=== PATIENT | female | born 1990 | race African-American/Black ===

== ENCOUNTER 2016-11-09 11:19 | Emergency (ER) | payer OTHER ==
[~2016-11-09] VITALS: Ht 167.6 cm; Wt 90.0 kg
[~2016-11-09 11:19] MED LIST: LEVO500T15 PO; LURA20TA; METO10TA3 PO; PROT40 PO
[2016-11-09 12:07] LABS: BASOPHILS % 0.9 % (0.0-2.0); HEMATOCRIT. 39.9 % (36.0-48.0); HEMOGLOBIN. 12.7 g/dL (12.0-16.0); LYMPHOCYTES % 21.1 % (20.0-50.0); MEAN CORPUSCULAR HEMOGLOBIN 26.8 pg (28.0-32.0); MEAN CORPUSCULAR HGB CONC 31.8 g/dL (31.0-37.0); MEAN CORPUSCULAR VOLUME 84.2 fL (81.0-99.0); MEAN PLATELET VOLUME 9.7 fl (7.4-10.4); MONOCYTES % 4.2 % (2.0-8.0); NEUTROPHILS % 72.8 % (40.0-76.0); PLATELET 272 x1000/uL (130-400); RED BLOOD CELL COUNT 4.74 mill/uL (4.2-5.4); RED CELL DISTRIBUTION WIDTH 15.1 % (11.6-14.6); WHITE BLOOD COUNT 13.4 x1000/uL (4.5-11.0)
[2016-11-09 12:10] LABS: CHLORIDE 106 mEq/L (98-107); INDEX HEMOLYSI 1 (1-3); INDEX ICTERIC 1 (1-4); INDEX LIPEMIC 1 (1-3)
[2016-11-09 12:16] LABS: CLARITY URINE CLEAR (CLEAR); COLOR URINE YELLOW (YELLOW); GLUCOSE URINE NEGATIVE (NEGATIVE); KETONES URINE NEGATIVE (NEGATIVE); LEUKOCYTE ESTERASE URINE NEGATIVE (NEGATIVE); NITRITE URINE POSITIVE (NEGATIVE); OCCULT BLOOD URINE NEGATIVE (NEGATIVE); PROTEIN URINE NEGATIVE (NEGATIVE); SPECIFIC GRAVITY URINE 1.013 (1.005-1.030)
[2016-11-09 12:19] LABS: ALANINE AMINOTRANSFERASE 21 IU/L (13-61); ALBUMIN 3.4 g/dL (3.4-5.0); ANION GAP 11; CALCIUM 9.4 mg/dL (8.5-10.1); CARBON DIOXIDE 27 mEq/L (21-32); ETHANOL BLOOD < 10 mg/dL; UREA NITROGEN BLOOD 6 mg/dL (7-21); eGFR > 60 mL/min (>60)
[2016-11-09 12:25] LABS: *BARBITURATES SCREEN URINE NEGATIVE (NEGATIVE); *BENZODIAZEPINES SCREEN URINE NEGATIVE (NEGATIVE); *COCAINE SCREEN URINE NEGATIVE (NEGATIVE); ECSTASY MDMA SCREEN URINE NEGATIVE (NEGATIVE); METHADONE URINE SCREEN NEGATIVE (NEGATIVE); OPIATES URINE SCREEN NEGATIVE (NEGATIVE); PHENCYCLIDINE URINE SCREEN NEGATIVE (NEGATIVE)
[2016-11-09 12:33] LABS: *AMPHETAMINES SCREEN URINE PRESUMTIVE POSITIVE (NEGATIVE)
[2016-11-09 12:34] LABS: CANNABINOID URINE SCREEN PRESUMTIVE POSITIVE (NEGATIVE)
[2016-11-09 12:45] LABS: SQUAMOUS EPITHELIAL CELL URINE RARE /lpf (RARE/1+)
[2016-11-09 12:46] LABS: BACTERIA URINE TRACE
[2016-11-09 12:47] LABS: YEAST URINE RARE
[2016-11-09 12:49] LABS: RBC URINE NONE SEEN /hpf (0-2); WBC URINE 0-2 /hpf (0-2)
[2016-11-09 13:10] VITALS: BP 118/82
== END 2016-11-09 13:12 | disposition home or self-care (01) ==
LOC: ER 11:30
DX: N39.0 Urinary tract infection, site not specified (principal); F15.10 Other stimulant abuse, uncomplicated; F12.10 Cannabis abuse, uncomplicated
CPT/HCPCS: 36415; 80053; 80305; 81001; 81025; 85025; 99284; G0482

== ENCOUNTER 2018-01-08 12:37 | Emergency (ER) | payer OTHER ==
[~2018-01-08] VITALS: Ht 149.9 cm; Wt 76.5 kg
[~2018-01-08 12:37] MED LIST changes: -LEVO500T15 PO; +LEVO500T2 PO
[2018-01-08 14:55] LABS: HEMATOCRIT. 37.7 % (36.0-48.0); HEMOGLOBIN. 11.9 g/dL (12.0-16.0); LYMPHOCYTES % 22.5 % (20.0-50.0); MEAN CORPUSCULAR HEMOGLOBIN 25.3 pg (28.0-32.0); MEAN CORPUSCULAR VOLUME 80.4 fL (81.0-99.0); MEAN PLATELET VOLUME 8.8 fl (7.4-10.4); MONOCYTES % 3.5 % (2.0-8.0); PLATELET 383 x1000/uL (130-400); RED BLOOD CELL COUNT 4.69 mill/uL (4.2-5.4)
[2018-01-08 15:00] VITALS: BP 128/78
[2018-01-08 15:01] LABS: CHLORIDE 103 mEq/L (98-107)
[2018-01-08 15:06] LABS: ETHANOL BLOOD < 10 mg/dL
[2018-01-08 15:07] LABS: HCG SCREEN NEGATIVE
[2018-01-08 15:54] LABS: CLARITY URINE CLEAR (CLEAR); COLOR URINE YELLOW (YELLOW); KETONES URINE NEGATIVE (NEGATIVE); LEUKOCYTE ESTERASE URINE NEGATIVE (NEGATIVE); NITRITE URINE NEGATIVE (NEGATIVE); OCCULT BLOOD URINE NEGATIVE (NEGATIVE); PROTEIN URINE NEGATIVE (NEGATIVE); SPECIFIC GRAVITY URINE 1.005 (1.005-1.030); UROBILINOGEN URINE 0.2 E.U./dL (0.2-1.0)
[2018-01-08 16:03] LABS: *BARBITURATES SCREEN URINE NEGATIVE (NEGATIVE)
[2018-01-08 16:04] LABS: *BENZODIAZEPINES SCREEN URINE NEGATIVE (NEGATIVE); *COCAINE SCREEN URINE NEGATIVE (NEGATIVE); CANNABINOID URINE SCREEN NEGATIVE (NEGATIVE); METHADONE URINE SCREEN NEGATIVE (NEGATIVE); OPIATES URINE SCREEN NEGATIVE (NEGATIVE); PHENCYCLIDINE URINE SCREEN NEGATIVE (NEGATIVE)
[2018-01-08 16:14] LABS: *AMPHETAMINES SCREEN URINE PRESUMTIVE POSITIVE (NEGATIVE)
== END 2018-01-08 15:49 | disposition home or self-care (01) ==
LOC: ER 12:37
DX: R53.83 Other fatigue (principal); R45.83 Excessive crying of child, adolescent or adult; F15.10 Other stimulant abuse, uncomplicated; F12.10 Cannabis abuse, uncomplicated; F17.200 Nicotine dependence, unspecified, uncomplicated
CPT/HCPCS: 36415; 80053; 80305; 80307; 80329; 81003; 84443; 84703; 85025; 99284; G0482; Z7610

== ENCOUNTER 2018-03-17 20:54 | Emergency (ER) | payer OTHER ==
[~2018-03-17] VITALS: Ht 165.1 cm; Wt 91.0 kg
[2018-03-17 20:56] VITALS: BP 124/72
== END 2018-03-18 02:01 | disposition left against medical advice (07) ==
LOC: ER 20:54
DX: Z53.21 Procedure and treatment not carried out due to patient leaving prior to being seen by health care provider (principal)

== ENCOUNTER 2018-09-22 09:53 | Emergency (ER) | payer OTHER ==
[~2018-09-22] VITALS: Ht 162.6 cm; Wt 70.0 kg
[2018-09-22 14:03] VITALS: BP 118/76
== END 2018-09-22 14:30 | disposition left against medical advice (07) ==
LOC: ER 10:01
DX: R42 Dizziness and giddiness (principal); Z53.21 Procedure and treatment not carried out due to patient leaving prior to being seen by health care provider

== ENCOUNTER 2019-01-15 17:39 | Emergency (ER) | payer OTHER ==
[~2019-01-15] VITALS: Ht 165.1 cm; Wt 70.0 kg
[2019-01-15 17:46] VITALS: BP 125/81
== END 2019-01-15 19:16 | disposition home or self-care (01) ==
LOC: ER 18:05
DX: L65.9 Nonscarring hair loss, unspecified (principal); R51 Headache
CPT/HCPCS: 81025; 99283

== ENCOUNTER 2019-06-09 08:29 | Emergency (ER) | payer OTHER ==
[~2019-06-09] VITALS: Ht 149.9 cm; Wt 77.0 kg
[2019-06-09] MEDS ORDERED: KETOROLAC 30MG/ML VIAL IV STA (08:55)
[2019-06-09] MEDS ORDERED: SODIUM CHLORIDE 0.9% 1,000 ML IV ONE (08:55)
[2019-06-09 09:25] LABS: BASOPHILS % 0.3 % (0.0-2.0); EOSINOPHILS % 0.4 % (0.0-5.0); HEMATOCRIT. 31.2 % (36.0-48.0); HEMOGLOBIN. 9.6 g/dL (12.0-16.0); LYMPHOCYTES % 7.5 % (20.0-50.0); MEAN CORPUSCULAR HEMOGLOBIN 23.1 pg (28.0-32.0); MEAN CORPUSCULAR VOLUME 75.1 fL (81.0-99.0); MEAN PLATELET VOLUME 8.8 fl (7.4-10.4); MONOCYTES % 3.7 % (2.0-8.0); NEUTROPHILS % 88.1 % (40.0-76.0); PLATELET 288 x1000/uL (130-400); RED BLOOD CELL COUNT 4.16 mill/uL (4.2-5.4); RED CELL DISTRIBUTION WIDTH 18.2 % (11.6-14.6)
[2019-06-09 09:31] LABS: CHLORIDE 103 mEq/L (98-107)
[2019-06-09 09:48] LABS: CLARITY URINE CLOUDY (CLEAR); COLOR URINE YELLOW (YELLOW); KETONES URINE TRACE (NEGATIVE); LEUKOCYTE ESTERASE URINE 2+ (NEGATIVE); NITRITE URINE NEGATIVE (NEGATIVE); OCCULT BLOOD URINE 3+ (NEGATIVE); PH URINE 5.5 (4.5-8.0); PROTEIN URINE 1+ (NEGATIVE); SPECIFIC GRAVITY URINE 1.028 (1.005-1.030)
[2019-06-09 10:10] VITALS: BP 119/78
[2019-06-09] MEDS ORDERED: CEFTRIAXONE 1 G PREMIX 50 ML IV ONE (10:45)
== END 2019-06-09 11:35 | disposition home or self-care (01) ==
LOC: ER 08:29
DX: N39.0 Urinary tract infection, site not specified (principal); K52.9 Noninfective gastroenteritis and colitis, unspecified
CPT/HCPCS: 36415; 74176; 80053; 81003; 81025; 83690; 85025; 87086; 96365; 96375; 99284; J0696; J1885; J7030

== ENCOUNTER 2019-06-11 10:05 | Emergency (ER) | payer OTHER ==
[~2019-06-11] VITALS: Ht 165.1 cm; Wt 68.0 kg
[2019-06-11 10:56] LABS: BASOPHILS % 0.4 % (0.0-2.0); EOSINOPHILS % 2.8 % (0.0-5.0); HEMATOCRIT. 29.5 % (36.0-48.0); HEMOGLOBIN. 9.2 g/dL (12.0-16.0); LYMPHOCYTES % 8.2 % (20.0-50.0); MEAN CORPUSCULAR HEMOGLOBIN 23.5 pg (28.0-32.0); MEAN CORPUSCULAR VOLUME 75.3 fL (81.0-99.0); MEAN PLATELET VOLUME 8.3 fl (7.4-10.4); MONOCYTES % 4.5 % (2.0-8.0); NEUTROPHILS % 84.1 % (40.0-76.0); PLATELET 292 x1000/uL (130-400); RED BLOOD CELL COUNT 3.92 mill/uL (4.2-5.4); RED CELL DISTRIBUTION WIDTH 17.7 % (11.6-14.6)
[2019-06-11 11:02] LABS: CHLORIDE 107 mEq/L (98-107)
[2019-06-11 11:06] LABS: ETHANOL BLOOD < 10 mg/dL
[2019-06-11 11:50] VITALS: BP 130/70
== END 2019-06-11 11:50 | disposition home or self-care (01) ==
LOC: ER 10:05
DX: F20.9 Schizophrenia, unspecified (principal)
CPT/HCPCS: 36415; 80048; 80307; 80320; 80329; 99284; G0480

== ENCOUNTER 2019-12-04 21:14 | Emergency (ER) | payer OTHER ==
[~2019-12-04] VITALS: Ht 149.9 cm; Wt 80.0 kg
[2019-12-04] MEDS ORDERED: IBUPROFEN 600MG TABLET PO ONE (22:45)
[2019-12-04] MEDS ORDERED: BACITRACIN ZINC OINT UDPKT TOP ONE (22:45)
[2019-12-04] MEDS ORDERED: LIDOCAINE HCL/PF 1% 10 MG/ML 5ML VIAL IJ ONE (22:45)
[2019-12-05 00:48] VITALS: BP 124/75
== END 2019-12-05 00:50 | disposition home or self-care (01) ==
LOC: ER 21:14
DX: L03.012 Cellulitis of left finger (principal); Z79.899 Other long term (current) drug therapy
CPT/HCPCS: 99283; J3490

== ENCOUNTER 2020-11-03 21:57 | Emergency (ER) | payer OTHER ==
[~2020-11-03] VITALS: Ht 149.9 cm; Wt 77.0 kg
[2020-11-03 22:24] VITALS: BP 148/88
[2020-11-03 23:26] LABS: CLARITY URINE CLEAR (CLEAR); COLOR URINE YELLOW (YELLOW); KETONES URINE TRACE (NEGATIVE); LEUKOCYTE ESTERASE URINE 1+ (NEGATIVE); NITRITE URINE POSITIVE (NEGATIVE); OCCULT BLOOD URINE 2+ (NEGATIVE); PROTEIN URINE NEGATIVE (NEGATIVE); SPECIFIC GRAVITY URINE 1.022 (1.005-1.030)
[2020-11-04] MEDS ORDERED: SULF1TAB48 PO (00:27)
[2020-11-04] MEDS ORDERED: METR70GE17 VG (00:27)
[2020-11-07 06:07] LABS: NEISSERIA GONORRHOEAE NAA Negative (Negative)
== END 2020-11-04 00:49 | disposition home or self-care (01) ==
LOC: ER 21:57
DX: N39.0 Urinary tract infection, site not specified (principal); N76.0 Acute vaginitis; F31.9 Bipolar disorder, unspecified
CPT/HCPCS: 81003; 81025; 87210; 87491; 87591; 93005; 99284

== ENCOUNTER 2021-04-29 21:35 | Emergency (ER) | payer OTHER ==
[~2021-04-29] VITALS: Ht 157.5 cm; Wt 69.0 kg
[~2021-04-29 21:35] MED LIST changes: +METR70GE17 VG; +SULF1TAB48 PO
[2021-04-29 21:39] VITALS: BP 130/75
== END 2021-04-29 23:00 | disposition left against medical advice (07) ==
LOC: ER 21:35
DX: R21 Rash and other nonspecific skin eruption (principal)
CPT/HCPCS: 99281

== ENCOUNTER 2021-11-23 11:40 | Emergency (ER) | payer OTHER ==
[~2021-11-23] VITALS: Ht 160 cm; Wt 61.0 kg
[2021-11-23 12:10] LABS: BASOPHILS % 0.6 % (0.0-2.0); EOSINOPHILS % 2.8 % (0.0-5.0); HEMOGLOBIN. 11.8 g/dL (12.0-16.0); LYMPHOCYTES % 23.6 % (20.0-50.0); MEAN CORPUSCULAR HEMOGLOBIN 26.3 pg (28.0-32.0); MEAN CORPUSCULAR VOLUME 82.7 fL (81.0-99.0); MEAN PLATELET VOLUME 8.8 fl (7.4-10.4); MONOCYTES % 4.5 % (2.0-8.0); NEUTROPHILS % 68.5 % (40.0-76.0); PLATELET 280 x1000/uL (130-400); RED BLOOD CELL COUNT 4.47 mill/uL (4.2-5.4); RED CELL DISTRIBUTION WIDTH 17.7 % (11.6-14.6)
[2021-11-23 12:15] LABS: CHLORIDE 106 mEq/L (98-107)
[2021-11-23 12:25] LABS: B-HCG QUANTITATIVE < 1 mIU/mL (<3)
[2021-11-23 12:43] LABS: CLARITY URINE TURBID (CLEAR); COLOR URINE RED (YELLOW); KETONES URINE NEGATIVE (NEGATIVE); LEUKOCYTE ESTERASE URINE 1+ (NEGATIVE); NITRITE URINE NEGATIVE (NEGATIVE); OCCULT BLOOD URINE 3+ (NEGATIVE); PH URINE >=9.0 (4.5-8.0); PROTEIN URINE 2+ (NEGATIVE); SPECIFIC GRAVITY URINE 1.017 (1.005-1.030); UROBILINOGEN URINE 0.2 E.U./dL (0.2-1.0)
[2021-11-23 12:58] LABS: METHADONE URINE SCREEN NEGATIVE (NEGATIVE); OPIATES URINE SCREEN NEGATIVE (NEGATIVE)
[2021-11-23 12:59] LABS: *BARBITURATES SCREEN URINE NEGATIVE (NEGATIVE); *BENZODIAZEPINES SCREEN URINE NEGATIVE (NEGATIVE); *COCAINE SCREEN URINE NEGATIVE (NEGATIVE); PHENCYCLIDINE URINE SCREEN NEGATIVE (NEGATIVE)
[2021-11-23 13:01] LABS: *AMPHETAMINES SCREEN URINE PRESUMTIVE POSITIVE (NEGATIVE); CANNABINOID URINE SCREEN PRESUMTIVE POSITIVE (NEGATIVE)
[2021-11-23] MEDS ORDERED: CEPHALEXIN 250MG CAPSULE PO NR (14:00)
[2021-11-23] MEDS ORDERED: CEPH500C2 MT (14:24)
[2021-11-23 14:41] VITALS: BP 126/80
== END 2021-11-23 14:42 | disposition home or self-care (01) ==
LOC: ER 11:40
DX: N93.9 Abnormal uterine and vaginal bleeding, unspecified (principal); D25.9 Leiomyoma of uterus, unspecified; N39.0 Urinary tract infection, site not specified; F31.9 Bipolar disorder, unspecified
CPT/HCPCS: 36415; 76830; 76856; 80053; 80305; 81003; 81025; 84702; 85025; 86850; 86900; 99284

== ENCOUNTER 2022-02-28 14:21 | Observation (INO) | payer OTHER ==
[~2022-02-28] VITALS: Ht 149.9 cm; Wt 78.9 kg
[~2022-02-28 14:21] MED LIST changes: +CEPH500C2 MT
== END 2022-02-28 15:22 | disposition home or self-care (01) ==
LOC: 8 EST A/PP 14:21
PROVIDERS: ADMIT Obstetrics & Gynecology; ATTEND Obstetrics & Gynecology
DX: O26.893 Other specified pregnancy related conditions, third trimester (principal); R06.02 Shortness of breath; R05.9 Cough, unspecified; J02.9 Acute pharyngitis, unspecified; Z3A.30 30 weeks gestation of pregnancy
CPT/HCPCS: 59025; 76856; G0378; 99281

== ENCOUNTER 2022-05-11 14:31 | Emergency (ER) | payer OTHER ==
[~2022-05-11] VITALS: Ht 167.6 cm; Wt 79.0 kg
[2022-05-11 14:54] VITALS: BP 152/91
== END 2022-05-11 18:24 | disposition left against medical advice (07) ==
LOC: ER 15:08
DX: O26.893 Other specified pregnancy related conditions, third trimester (principal); F31.9 Bipolar disorder, unspecified; Z3A.40 40 weeks gestation of pregnancy
CPT/HCPCS: 81025; 99282

== ENCOUNTER 2022-05-13 13:02 | Emergency (ER) | payer OTHER ==
[~2022-05-13] VITALS: Ht 157.5 cm; Wt 100.0 kg
[2022-05-13 13:30] VITALS: BP 129/87
[2022-05-13] MEDS ORDERED: ACETAMINOPHEN 325MG TABLET PO ONE (15:15)
== END 2022-05-13 15:48 | disposition left against medical advice (07) ==
LOC: ER 13:10
DX: M79.645 Pain in left finger(s) (principal); F31.9 Bipolar disorder, unspecified
CPT/HCPCS: 99282

== ENCOUNTER 2022-05-17 12:09 | Observation (INO) | payer OTHER ==
[~2022-05-17] VITALS: Ht 149.9 cm; Wt 79.8 kg
== END 2022-05-17 13:00 | disposition home or self-care (01) ==
LOC: L&D 12:09 → 8 EST LDRP 12:49
PROVIDERS: ADMIT Obstetrics & Gynecology; ATTEND Obstetrics & Gynecology
DX: O48.0 Post-term pregnancy (principal); O62.9 Abnormality of forces of labor, unspecified; O26.893 Other specified pregnancy related conditions, third trimester; F31.9 Bipolar disorder, unspecified; Z3A.40 40 weeks gestation of pregnancy
CPT/HCPCS: G0378

== ENCOUNTER 2022-07-11 17:40 | Emergency (ER) | payer OTHER ==
[~2022-07-11] VITALS: Ht 157.5 cm; Wt 68.0 kg
[2022-07-11 17:46] VITALS: BP 146/77
[2022-07-11] MEDS ORDERED: ONDANSETRON 4MG ODT PO STA (18:25)
[2022-07-11] MEDS ORDERED: MAGNESIUM/ALUMINUM HYDROXIDE/SIMETHICONE 30ML UDC PO STA (18:25)
[2022-07-11] MEDS ORDERED: VISCOUS LIDOCAINE 2% 15 ML UDC PO STA (18:25)
[2022-07-11] MEDS ORDERED: FAMOTIDINE 20MG TABLET PO ONE (18:30)
[2022-07-11 18:51] LABS: BASOPHILS % 0.4 % (0.0-2.0); EOSINOPHILS % 0.6 % (0.0-5.0); HEMATOCRIT. 37.7 % (36.0-48.0); HEMOGLOBIN. 11.8 g/dL (12.0-16.0); LYMPHOCYTES % 8.5 % (20.0-50.0); MEAN CORPUSCULAR HEMOGLOBIN 26.5 pg (28.0-32.0); MEAN CORPUSCULAR VOLUME 84.7 fL (81.0-99.0); MEAN PLATELET VOLUME 9.5 fl (7.4-10.4); MONOCYTES % 4.5 % (2.0-8.0); PLATELET 303 x1000/uL (130-400); RED BLOOD CELL COUNT 4.45 mill/uL (4.2-5.4); RED CELL DISTRIBUTION WIDTH 15.6 % (11.6-14.6)
[2022-07-11 19:08] LABS: CHLORIDE 105 mEq/L (98-107)
[2022-07-11 19:14] LABS: HCG SCREEN NEGATIVE
[2022-07-11] MEDS ORDERED: FAMO-135 MT (19:23)
== END 2022-07-11 19:45 | disposition home or self-care (01) ==
LOC: ER 17:40
DX: R10.13 Epigastric pain (principal); Z79.899 Other long term (current) drug therapy
CPT/HCPCS: 36415; 80053; 83690; 84703; 85025; 99284; Q0162

== ENCOUNTER 2022-09-16 17:54 | Emergency (ER) | payer OTHER ==
[~2022-09-16] VITALS: Ht 167.6 cm; Wt 75.0 kg
[~2022-09-16 17:54] MED LIST changes: +FAMO-135 MT
[2022-09-16 18:25] VITALS: BP 152/92
[2022-09-16 20:20] LABS: BASOPHILS % 0.5 % (0.0-2.0); EOSINOPHILS % 1.1 % (0.0-5.0); HEMOGLOBIN. 13.1 g/dL (12.0-16.0); MEAN CORPUSCULAR HEMOGLOBIN 26.3 pg (28.0-32.0); MEAN CORPUSCULAR VOLUME 82.3 fL (81.0-99.0); MEAN PLATELET VOLUME 10.3 fl (7.4-10.4); MONOCYTES % 5.8 % (2.0-8.0); NEUTROPHILS % 71.6 % (40.0-76.0); PLATELET 312 x1000/uL (130-400); RED BLOOD CELL COUNT 4.99 mill/uL (4.2-5.4); RED CELL DISTRIBUTION WIDTH 15.4 % (11.6-14.6)
[2022-09-16 20:24] LABS: CHLORIDE 106 mEq/L (98-107)
[2022-09-16 20:41] LABS: HCG SCREEN NEGATIVE
== END 2022-09-17 00:03 | disposition home or self-care (01) ==
LOC: ER 17:54
DX: R04.0 Epistaxis (principal); Z13.9 Encounter for screening, unspecified
CPT/HCPCS: 36415; 80053; 84703; 85025; 86850; 86900; 99283

== ENCOUNTER 2022-11-11 02:14 | Emergency (ER) | payer OTHER ==
[~2022-11-11] VITALS: Ht 149.9 cm; Wt 62.5 kg
[2022-11-11 02:22] VITALS: BP 157/92
== END 2022-11-11 03:02 | disposition left against medical advice (07) ==
LOC: ER 02:14
DX: Z53.21 Procedure and treatment not carried out due to patient leaving prior to being seen by health care provider (principal)
CPT/HCPCS: 99281

== ENCOUNTER 2023-02-12 07:33 | Emergency (ER) | payer OTHER ==
[~2023-02-12] VITALS: Ht 149.9 cm; Wt 61.8 kg
[2023-02-12 07:58] VITALS: O2SAT 100
[2023-02-12 08:06] VITALS: BP 152/63; PULSE 65; RESP 18; TEMP 98.3
== END 2023-02-12 09:01 | disposition home or self-care (01) ==
LOC: ER 07:33
DX: Z00.00 Encounter for general adult medical examination without abnormal findings (principal); F19.10 Other psychoactive substance abuse, uncomplicated
CPT/HCPCS: 81025; 99282

== ENCOUNTER 2023-02-16 20:56 | Emergency (ER) | payer OTHER ==
[~2023-02-16] VITALS: Ht 149.9 cm; Wt 61.5 kg
[2023-02-16 21:34] VITALS: BP 164/94; PULSE 81; RESP 16; TEMP 98.5; O2SAT 100
== END 2023-02-17 03:18 | disposition home or self-care (01) ==
LOC: ER 20:56
DX: Z00.00 Encounter for general adult medical examination without abnormal findings (principal)
CPT/HCPCS: 99281

== ENCOUNTER 2023-02-18 10:41 | Emergency (ER) | payer OTHER ==
[~2023-02-18] VITALS: Ht 157.5 cm; Wt 71.0 kg
[2023-02-18 10:52] VITALS: BP 141/72; PULSE 82; RESP 19; TEMP 98; O2SAT 100
[2023-02-18 11:42] LABS: *BARBITURATES SCREEN URINE NEGATIVE (NEGATIVE); *BENZODIAZEPINES SCREEN URINE NEGATIVE (NEGATIVE); *COCAINE SCREEN URINE NEGATIVE (NEGATIVE); METHADONE URINE SCREEN NEGATIVE (NEGATIVE); OPIATES URINE SCREEN NEGATIVE (NEGATIVE); PHENCYCLIDINE URINE SCREEN NEGATIVE (NEGATIVE)
[2023-02-18 12:05] LABS: *AMPHETAMINES SCREEN URINE PRESUMTIVE POSITIVE (NEGATIVE); CANNABINOID URINE SCREEN PRESUMTIVE POSITIVE (NEGATIVE)
== END 2023-02-18 11:58 | disposition home or self-care (01) ==
LOC: ER 10:54
DX: N91.2 Amenorrhea, unspecified (principal); F15.10 Other stimulant abuse, uncomplicated; F12.10 Cannabis abuse, uncomplicated; Z79.899 Other long term (current) drug therapy
CPT/HCPCS: 80305; 81025; 99283

== ENCOUNTER 2023-02-19 05:26 | Emergency (ER) | payer OTHER ==
[~2023-02-19] VITALS: Ht 157.5 cm; Wt 71.0 kg
[2023-02-19 05:48] VITALS: BP 139/70; PULSE 98; RESP 18; TEMP 98.4; O2SAT 100
== END 2023-02-19 06:10 | disposition home or self-care (01) ==
LOC: ER 05:26
DX: Z00.00 Encounter for general adult medical examination without abnormal findings (principal); Z79.899 Other long term (current) drug therapy
CPT/HCPCS: 99281

== ENCOUNTER 2023-03-08 16:14 | Emergency (ER) | payer OTHER ==
[2023-03-08 16:16] VITALS: PULSE 101; RESP 20
== END 2023-03-08 17:40 | disposition left against medical advice (07) ==
LOC: ER 16:14
DX: Z53.21 Procedure and treatment not carried out due to patient leaving prior to being seen by health care provider (principal)
CPT/HCPCS: 99283

== ENCOUNTER 2023-03-09 19:17 | Emergency (ER) | payer OTHER ==
[~2023-03-09] VITALS: Ht 165.1 cm; Wt 60.0 kg
[2023-03-09 19:23] VITALS: BP 146/72; PULSE 90; RESP 16; TEMP 98.1; O2SAT 98
== END 2023-03-09 21:04 | disposition left against medical advice (07) ==
LOC: ER 19:17
DX: N93.8 Other specified abnormal uterine and vaginal bleeding (principal); Z79.899 Other long term (current) drug therapy
CPT/HCPCS: 99283

== ENCOUNTER 2023-12-01 15:19 | Emergency (ER) | payer OTHER, MEDICAID ==
[~2023-12-01] VITALS: Ht 149.9 cm; Wt 52.0 kg
[2023-12-01 15:43] VITALS: BP 129/75; PULSE 91; TEMP 98.7; O2SAT 100
[2023-12-01] MEDS ORDERED: PNV1TABL59 MT (17:19)
[2023-12-01 18:00] VITALS: RESP 16
[2023-12-01 19:13] LABS: UCG QC LOT# 796104; UCG SCREEN NEGATIVE
== END 2023-12-01 19:49 | disposition home or self-care (01) ==
LOC: ER 15:19
DX: F30.9 Manic episode, unspecified (principal); Z76.0 Encounter for issue of repeat prescription
CPT/HCPCS: 81025; 99283

== ENCOUNTER 2024-01-18 22:00 | Emergency (ER) | payer MEDICAID, OTHER ==
[~2024-01-18 22:00] MED LIST changes: +PNV1TABL59 MT
[2024-01-18 22:07] VITALS: PULSE 92
== END 2024-01-18 22:27 | disposition left against medical advice (07) ==
LOC: ER 22:00
DX: R68.89 Other general symptoms and signs (principal); Z53.21 Procedure and treatment not carried out due to patient leaving prior to being seen by health care provider

== ENCOUNTER 2024-02-14 09:13 | Emergency (ER) | payer MEDICAID, OTHER ==
[~2024-02-14] VITALS: Ht 157.5 cm; Wt 60.0 kg
[2024-02-14 09:34] VITALS: O2SAT 100
[2024-02-14 10:27] VITALS: BP 127/70; PULSE 63; RESP 18; TEMP 98.5
== END 2024-02-14 10:27 | disposition home or self-care (01) ==
LOC: ER 09:13
DX: H10.33 Unspecified acute conjunctivitis, bilateral (principal); Z79.899 Other long term (current) drug therapy
CPT/HCPCS: 81025; 99282

== ENCOUNTER 2024-02-18 09:24 | Emergency (ER) | payer MEDICAID ==
[~2024-02-18] VITALS: Ht 162.6 cm; Wt 54.0 kg
[2024-02-18 09:27] VITALS: O2SAT 99
[2024-02-18 10:27] LABS: BASOPHILS % 0.6 % (0.0-2.0); EOSINOPHILS % 0.6 % (0.0-5.0); HEMATOCRIT. 36.9 % (36.0-48.0); HEMOGLOBIN. 11.6 g/dL (12.0-16.0); LYMPHOCYTES % 18.5 % (20.0-50.0); MEAN CORPUSCULAR HGB CONC 31.5 g/dL (31.0-37.0); MEAN CORPUSCULAR VOLUME 82.7 fL (81.0-99.0); MEAN PLATELET VOLUME 9.2 fl (7.4-10.4); MONOCYTES % 7.2 % (2.0-8.0); NEUTROPHILS % 73.1 % (40.0-76.0); PLATELET 327 x1000/uL (130-400); RED BLOOD CELL COUNT 4.46 mill/uL (4.2-5.4); RED CELL DISTRIBUTION WIDTH 16.2 % (11.6-14.6); WHITE BLOOD COUNT 11.9 x1000/uL (4.5-11.0)
[2024-02-18 10:50] LABS: CHLORIDE 104 mEq/L (98-107); POTASSIUM 3.8 mEq/L (3.5-5.1); SODIUM 137 mEq/L (136-145)
[2024-02-18 10:51] LABS: CALCIUM 9.2 mg/dL (8.7-10.4); CARBON DIOXIDE 27 mEq/L (21-32)
[2024-02-18 10:53] LABS: HCG SCREEN NEGATIVE
[2024-02-18 10:56] LABS: CREATININE 0.8 mg/dL (0.6-1.0); GLUCOSE 91 mg/dL (70-105); UREA NITROGEN BLOOD 13 mg/dL (9-23)
[2024-02-18 10:58] LABS: ETHANOL BLOOD < 10 mg/dL (<10); TROPONIN I HIGH SENSITIVITY < 4 ng/L (3.0-34)
[2024-02-18 19:05] VITALS: TEMP 98.3
[2024-02-18 19:08] LABS: CLARITY URINE CLOUDY (CLEAR); COLOR URINE YELLOW (YELLOW); GLUCOSE URINE NEGATIVE (NEGATIVE); KETONES URINE NEGATIVE (NEGATIVE); LEUKOCYTE ESTERASE URINE 3+ (NEGATIVE); NITRITE URINE NEGATIVE (NEGATIVE); OCCULT BLOOD URINE TRACE (NEGATIVE); PROTEIN URINE NEGATIVE (NEGATIVE); SPECIFIC GRAVITY URINE 1.003 (1.005-1.030); UROBILINOGEN URINE 0.2 E.U./dL (0.2-1.0)
[2024-02-18 19:33] LABS: *AMPHETAMINES SCREEN URINE PRESUMPTIVE POSITIVE (NEGATIVE); *BARBITURATES SCREEN URINE NEGATIVE (NEGATIVE); *BENZODIAZEPINES SCREEN URINE NEGATIVE (NEGATIVE); *COCAINE SCREEN URINE NEGATIVE (NEGATIVE); METHADONE URINE SCREEN NEGATIVE (NEGATIVE); OPIATES URINE SCREEN NEGATIVE (NEGATIVE); PHENCYCLIDINE URINE SCREEN NEGATIVE (NEGATIVE)
[2024-02-18 19:34] LABS: CANNABINOID URINE SCREEN NEGATIVE (NEGATIVE); ECSTASY MDMA SCREEN URINE NEGATIVE (NEGATIVE)
[2024-02-18 19:36] LABS: BACTERIA URINE 2+; SQUAMOUS EPITHELIAL CELL URINE 2+ /lpf (RARE/1+)
[2024-02-18 19:37] LABS: RBC URINE 0-2 /hpf (0-2)
[2024-02-19] MEDS ORDERED: NITROFURANTOIN 100MG M/M CAPSULE PO ONE (06:30)
[2024-02-19] MEDS: OLANZAPINE 5MG TABLET ODT PO SCH (09:00)
[2024-02-19] MEDS: NITROFURANTOIN 100MG M/M CAPSULE PO NR (09:30)
[2024-02-19] MEDS: DIPHENHYDRAMINE 50MG/ML VIAL IM ONE (11:00)
[2024-02-19] MEDS: HALOPERIDOL LACTATE 5MG/ML VIAL IM ONE (11:00)
[2024-02-19 11:02] VITALS: BP 117/67; PULSE 52; RESP 16
== END 2024-02-19 18:35 ==
LOC: ER 09:38
DX: F29 Unspecified psychosis not due to a substance or known physiological condition (principal); Z20.822 Contact with and (suspected) exposure to COVID-19; Z79.899 Other long term (current) drug therapy; Z98.890 Other specified postprocedural states
CPT/HCPCS: 80305; 80048; 81003; 80320; 84703; 85025; 84484; 36415; 99285; 96372; 87426; J1200; J1630; Z7610; G0480

== ENCOUNTER 2024-03-02 04:25 | Emergency (ER) | payer MEDICAID ==
[~2024-03-02] VITALS: Ht 170.2 cm; Wt 73.0 kg
[2024-03-02 04:26] VITALS: O2SAT 99
[2024-03-02 05:26] LABS: CHLORIDE 109 mEq/L (98-107); POTASSIUM 3.5 mEq/L (3.5-5.1); SODIUM 142 mEq/L (136-145)
[2024-03-02 05:27] LABS: CARBON DIOXIDE 25 mEq/L (21-32)
[2024-03-02 05:28] LABS: CALCIUM 9.3 mg/dL (8.7-10.4)
[2024-03-02 05:32] LABS: CREATININE 0.8 mg/dL (0.6-1.0); GLUCOSE 82 mg/dL (70-105)
[2024-03-02 05:33] LABS: UREA NITROGEN BLOOD 13 mg/dL (9-23)
[2024-03-02 05:34] LABS: ACETAMINOPHEN < 2 ug/mL (10-30)
[2024-03-02 05:44] LABS: HCG SCREEN NEGATIVE
[2024-03-02 05:45] LABS: ETHANOL BLOOD < 10 mg/dL (<10)
[2024-03-02 05:48] LABS: CLARITY URINE TURBID (CLEAR); COLOR URINE RED (YELLOW); GLUCOSE URINE NEGATIVE (NEGATIVE); KETONES URINE TRACE (NEGATIVE); LEUKOCYTE ESTERASE URINE 1+ (NEGATIVE); NITRITE URINE NEGATIVE (NEGATIVE); OCCULT BLOOD URINE 3+ (NEGATIVE); PROTEIN URINE 2+ (NEGATIVE); SPECIFIC GRAVITY URINE 1.032 (1.005-1.030); UROBILINOGEN URINE 0.2 E.U./dL (0.2-1.0)
[2024-03-02 06:05] LABS: *AMPHETAMINES SCREEN URINE PRESUMPTIVE POSITIVE (NEGATIVE); *BARBITURATES SCREEN URINE NEGATIVE (NEGATIVE); *BENZODIAZEPINES SCREEN URINE NEGATIVE (NEGATIVE); *COCAINE SCREEN URINE NEGATIVE (NEGATIVE); CANNABINOID URINE SCREEN NEGATIVE (NEGATIVE); ECSTASY MDMA SCREEN URINE CONF.TEST INDICATED (NEGATIVE); METHADONE URINE SCREEN NEGATIVE (NEGATIVE); OPIATES URINE SCREEN NEGATIVE (NEGATIVE); PHENCYCLIDINE URINE SCREEN PRESUMTIVE POSITIVE (NEGATIVE)
[2024-03-02 07:33] LABS: MUCUS URINE TRACE /lpf (< = 2+); SQUAMOUS EPITHELIAL CELL URINE RARE /lpf (RARE/1+)
[2024-03-02 07:34] LABS: BACTERIA URINE 3+; RBC URINE TNTC /hpf (0-2)
[2024-03-02 08:17] LABS: BASOPHILS % 0.5 % (0.0-2.0); EOSINOPHILS % 1.6 % (0.0-5.0); HEMATOCRIT. 35.7 % (36.0-48.0); HEMOGLOBIN. 11.6 g/dL (12.0-16.0); LYMPHOCYTES % 13.6 % (20.0-50.0); MEAN CORPUSCULAR HEMOGLOBIN 26.8 pg (28.0-32.0); MEAN CORPUSCULAR HGB CONC 32.4 g/dL (31.0-37.0); MEAN CORPUSCULAR VOLUME 82.7 fL (81.0-99.0); MEAN PLATELET VOLUME 9.6 fl (7.4-10.4); MONOCYTES % 5.9 % (2.0-8.0); NEUTROPHILS % 78.4 % (40.0-76.0); PLATELET 351 x1000/uL (130-400); RED BLOOD CELL COUNT 4.32 mill/uL (4.2-5.4); RED CELL DISTRIBUTION WIDTH 15.8 % (11.6-14.6); WHITE BLOOD COUNT 10.8 x1000/uL (4.5-11.0)
[2024-03-02 12:30] VITALS: BP 109/59; PULSE 76; RESP 18; TEMP 98
== END 2024-03-02 12:50 | disposition home or self-care (01) ==
LOC: ER 04:32
DX: N93.9 Abnormal uterine and vaginal bleeding, unspecified (principal); Z91.148 Patient's other noncompliance with medication regimen for other reason; Z79.899 Other long term (current) drug therapy; Z98.890 Other specified postprocedural states
CPT/HCPCS: 36415; 74176; 80048; 80305; 80307; 80320; 80329; 81003; 84703; 85025; 99284; G0480

== ENCOUNTER 2024-03-09 08:20 | Emergency (ER) | payer MEDICAID ==
[~2024-03-09] VITALS: Ht 152.4 cm; Wt 46.0 kg
[2024-03-09 08:22] VITALS: O2SAT 100
[2024-03-09 10:23] LABS: HCG SCREEN NEGATIVE
[2024-03-09 10:29] VITALS: BP 133/77; PULSE 93; RESP 20; TEMP 98.5
== END 2024-03-09 10:30 | disposition home or self-care (01) ==
LOC: ER 08:25
DX: Z32.00 Encounter for pregnancy test, result unknown (principal); F31.9 Bipolar disorder, unspecified; Z79.899 Other long term (current) drug therapy
CPT/HCPCS: 81025; 84703; 99283

== ENCOUNTER 2024-03-19 08:05 | Emergency (ER) | payer MEDICAID ==
[~2024-03-19] VITALS: Ht 160 cm; Wt 60.0 kg
[2024-03-19 08:08] VITALS: O2SAT 100
[2024-03-19 08:55] LABS: CLARITY URINE CLEAR (CLEAR); COLOR URINE YELLOW (YELLOW); GLUCOSE URINE NEGATIVE (NEGATIVE); KETONES URINE TRACE (NEGATIVE); LEUKOCYTE ESTERASE URINE TRACE (NEGATIVE); NITRITE URINE NEGATIVE (NEGATIVE); OCCULT BLOOD URINE NEGATIVE (NEGATIVE); PH URINE 5.5 (4.5-8.0); PROTEIN URINE TRACE (NEGATIVE); SPECIFIC GRAVITY URINE 1.028 (1.005-1.030)
[2024-03-19] MEDS ORDERED: PREN1COM17 MT (09:09)
[2024-03-19 09:28] VITALS: BP 131/79; PULSE 81; RESP 18; TEMP 36.89184; O2SAT 100
[2024-03-19 10:27] LABS: MUCUS URINE 1+ /lpf (< = 2+); SQUAMOUS EPITHELIAL CELL URINE FEW /lpf (RARE/1+)
[2024-03-19 10:29] LABS: BACTERIA URINE TRACE
[2024-03-19 10:31] LABS: RBC URINE NONE SEEN /hpf (0-2)
== END 2024-03-19 09:29 | disposition home or self-care (01) ==
LOC: ER 08:05
DX: Z00.00 Encounter for general adult medical examination without abnormal findings (principal); F31.9 Bipolar disorder, unspecified; Z79.899 Other long term (current) drug therapy
CPT/HCPCS: 81003; 81025; 99283

== ENCOUNTER 2024-03-24 08:50 | Emergency (ER) | payer MEDICAID ==
[~2024-03-24] VITALS: Ht 160 cm; Wt 60.0 kg
[~2024-03-24 08:50] MED LIST changes: +PREN1COM17 MT
[2024-03-24 09:04] VITALS: O2SAT 100
[2024-03-24 11:00] VITALS: BP 118/68; PULSE 67; RESP 18; TEMP 36.89184; O2SAT 100
== END 2024-03-24 11:01 | disposition home or self-care (01) ==
LOC: ER 08:50
DX: Z00.00 Encounter for general adult medical examination without abnormal findings (principal); F31.9 Bipolar disorder, unspecified; Z79.899 Other long term (current) drug therapy
CPT/HCPCS: 84702; 36415; 99283; Z7610

== ENCOUNTER 2024-03-26 08:45 | Emergency (ER) | payer MEDICAID ==
[~2024-03-26] VITALS: Ht 149.9 cm; Wt 50.0 kg
[2024-03-26 08:49] VITALS: O2SAT 100
[2024-03-26 09:32] VITALS: BP 121/81; PULSE 84; RESP 18; TEMP 36.83628; O2SAT 100
== END 2024-03-26 09:35 | disposition home or self-care (01) ==
LOC: ER 08:49
DX: R59.1 Generalized enlarged lymph nodes (principal); F31.9 Bipolar disorder, unspecified; Z79.899 Other long term (current) drug therapy
CPT/HCPCS: 81025; 99282

== ENCOUNTER 2024-05-26 15:42 | Emergency (ER) | payer MEDICAID ==
[~2024-05-26] VITALS: Ht 167.6 cm; Wt 66.0 kg
[2024-05-26 16:11] VITALS: BP 136/96; PULSE 79; RESP 18; TEMP 98.4; O2SAT 100
== END 2024-05-26 18:11 | disposition home or self-care (01) ==
LOC: ER 15:42
DX: Z32.02 Encounter for pregnancy test, result negative (principal); F31.9 Bipolar disorder, unspecified; Z79.899 Other long term (current) drug therapy
CPT/HCPCS: 81025; 99282

== ENCOUNTER 2024-06-04 07:22 | Emergency (ER) | payer MEDICAID ==
[~2024-06-04] VITALS: Ht 149.9 cm; Wt 53.0 kg
[2024-06-04 07:38] VITALS: O2SAT 100
[2024-06-04 09:40] LABS: CLARITY URINE CLEAR (CLEAR); COLOR URINE YELLOW (YELLOW); GLUCOSE URINE NEGATIVE (NEGATIVE); KETONES URINE NEGATIVE (NEGATIVE); LEUKOCYTE ESTERASE URINE NEGATIVE (NEGATIVE); NITRITE URINE NEGATIVE (NEGATIVE); OCCULT BLOOD URINE NEGATIVE (NEGATIVE); PH URINE 5.5 (4.5-8.0); PROTEIN URINE NEGATIVE (NEGATIVE); SPECIFIC GRAVITY URINE 1.023 (1.005-1.030); UROBILINOGEN URINE 0.2 E.U./dL (0.2-1.0)
[2024-06-04 09:40] LABS: CALCIUM 9.2 mg/dL (8.7-10.4); CARBON DIOXIDE 28 mEq/L (21-32); CHLORIDE 106 mEq/L (98-107); SODIUM 139 mEq/L (136-145)
[2024-06-04 09:42] LABS: BASOPHILS % 0.4 % (0.0-2.0); DIFFERENTIAL COMMENT 0; EOSINOPHILS % 2.6 % (0.0-5.0); HEMATOCRIT. 36.1 % (36.0-48.0); HEMOGLOBIN. 11.1 g/dL (12.0-16.0); LYMPHOCYTES % 20.3 % (20.0-50.0); MEAN CORPUSCULAR HEMOGLOBIN 25.9 pg (28.0-32.0); MEAN CORPUSCULAR HGB CONC 30.7 g/dL (31.0-37.0); MEAN CORPUSCULAR VOLUME 84.3 fL (81.0-99.0); MEAN PLATELET VOLUME 9.7 fl (7.4-10.4); MONOCYTES % 6.6 % (2.0-8.0); NEUTROPHILS % 70.1 % (40.0-76.0); PLATELET 306 x1000/uL (130-400); RED BLOOD CELL COUNT 4.29 mill/uL (4.2-5.4); RED CELL DISTRIBUTION WIDTH 15.9 % (11.6-14.6); WHITE BLOOD COUNT 8.4 x1000/uL (4.5-11.0)
[2024-06-04 09:44] LABS: CREATININE 0.7 mg/dL (0.6-1.0); GLUCOSE 85 mg/dL (70-105)
[2024-06-04 09:45] LABS: UREA NITROGEN BLOOD 9 mg/dL (9-23)
[2024-06-04 09:46] LABS: ALANINE AMINOTRANSFERASE 16 IU/L (10-49); ALBUMIN 3.8 g/dL (3.2-4.8); ASPARTATE AMINOTRANSFERASE 22 IU/L (<34); BILIRUBIN DIRECT 0.1 mg/dL (<=3.0); HCG SCREEN NEGATIVE
[2024-06-04 09:47] LABS: BILIRUBIN TOTAL 0.4 mg/dL (0.1-1.0); PROTEIN TOTAL 6.9 g/dL (6.0-8.3)
[2024-06-04 10:04] VITALS: BP 125/78; PULSE 74; RESP 18; TEMP 36.94740; O2SAT 100
== END 2024-06-04 10:05 | disposition home or self-care (01) ==
LOC: ER 07:36
DX: R10.9 Unspecified abdominal pain (principal); Z79.899 Other long term (current) drug therapy
CPT/HCPCS: 36415; 80048; 80076; 81003; 84703; 85025; 99283

== ENCOUNTER 2024-06-16 07:27 | Emergency (ER) | payer MEDICAID ==
[~2024-06-16] VITALS: Ht 152.4 cm; Wt 53.0 kg
[2024-06-16 07:45] VITALS: BP 139/86; O2SAT 100
[2024-06-16 07:59] VITALS: PULSE 61; RESP 16; TEMP 36.78072; O2SAT 100
== END 2024-06-16 07:59 | disposition home or self-care (01) ==
LOC: ER 07:27
DX: O26.893 Other specified pregnancy related conditions, third trimester (principal); Z3A.00 Weeks of gestation of pregnancy not specified; Z79.899 Other long term (current) drug therapy
CPT/HCPCS: 99283

== ENCOUNTER 2024-08-09 08:07 | Emergency (ER) | payer SELFPAY ==
[~2024-08-09] VITALS: Ht 149.9 cm; Wt 53.0 kg
[2024-08-09 08:08] VITALS: O2SAT 100
[2024-08-09 08:13] VITALS: BP 109/71; PULSE 90; RESP 16; TEMP 98.5; O2SAT 100
[2024-08-09 09:03] LABS: HCG SCREEN NEGATIVE
[2024-08-09 09:11] LABS: CLARITY URINE CLOUDY (CLEAR); COLOR URINE YELLOW (YELLOW); GLUCOSE URINE NEGATIVE (NEGATIVE); KETONES URINE NEGATIVE (NEGATIVE); LEUKOCYTE ESTERASE URINE TRACE (NEGATIVE); NITRITE URINE NEGATIVE (NEGATIVE); OCCULT BLOOD URINE NEGATIVE (NEGATIVE); PH URINE 5.5 (4.5-8.0); PROTEIN URINE TRACE (NEGATIVE); SPECIFIC GRAVITY URINE 1.025 (1.005-1.030); UROBILINOGEN URINE 0.2 E.U./dL (0.2-1.0)
[2024-08-09 09:24] LABS: RBC URINE 0-2 /hpf (0-2)
[2024-08-09 09:25] LABS: BACTERIA URINE 4+; SQUAMOUS EPITHELIAL CELL URINE 3+ /lpf (RARE/1+); YEAST URINE NONE SEEN
[2024-08-09 11:58] LABS: *AMPHETAMINES SCREEN URINE PRESUMPTIVE POSITIVE (NEGATIVE); *BARBITURATES SCREEN URINE NEGATIVE (NEGATIVE); *BENZODIAZEPINES SCREEN URINE NEGATIVE (NEGATIVE); *COCAINE SCREEN URINE NEGATIVE (NEGATIVE); CANNABINOID URINE SCREEN PRESUMPTIVE POSITIVE (NEGATIVE); ECSTASY MDMA SCREEN URINE CONF.TEST INDICATED (NEGATIVE); METHADONE URINE SCREEN NEGATIVE (NEGATIVE); OPIATES URINE SCREEN NEGATIVE (NEGATIVE); PHENCYCLIDINE URINE SCREEN NEGATIVE (NEGATIVE)
== END 2024-08-09 10:34 | disposition home or self-care (01) ==
LOC: ER 08:07
DX: Z71.1 Person with feared health complaint in whom no diagnosis is made (principal); F31.9 Bipolar disorder, unspecified; Z79.899 Other long term (current) drug therapy
CPT/HCPCS: 80305; 81003; 84703; 99283

== ENCOUNTER 2024-09-06 14:39 | Emergency (ER) | payer SELFPAY ==
[~2024-09-06] VITALS: Ht 149.9 cm; Wt 53.0 kg
[2024-09-06 14:44] VITALS: BP 110/69; RESP 16; TEMP 37.1; O2SAT 100
[2024-09-06 14:51] VITALS: PULSE 82; O2SAT 100
== END 2024-09-06 18:08 | disposition home or self-care (01) ==
LOC: ER 14:44
DX: F31.9 Bipolar disorder, unspecified (principal); Z79.899 Other long term (current) drug therapy
CPT/HCPCS: 99281

== ENCOUNTER 2024-09-09 09:51 | Emergency (ER) | payer SELFPAY ==
[~2024-09-09] VITALS: Ht 152.4 cm; Wt 55.0 kg
[2024-09-09 09:58] VITALS: O2SAT 98
[2024-09-09 10:07] VITALS: BP 135/93; PULSE 93; RESP 18; TEMP 36.5; O2SAT 99
== END 2024-09-09 11:51 | disposition home or self-care (01) ==
LOC: ER 09:51
DX: Z13.89 Encounter for screening for other disorder (principal); Z79.899 Other long term (current) drug therapy
CPT/HCPCS: 81025; 99282

== ENCOUNTER 2024-12-17 08:01 | Emergency (ER) | payer SELFPAY ==
[~2024-12-17] VITALS: Ht 160 cm; Wt 50.0 kg
[2024-12-17 08:04] VITALS: O2SAT 99
[2024-12-17 08:48] LABS: CLARITY URINE CLEAR (CLEAR); COLOR URINE DARK YELLOW (YELLOW); GLUCOSE URINE NEGATIVE (NEGATIVE); KETONES URINE TRACE (NEGATIVE); LEUKOCYTE ESTERASE URINE NEGATIVE (NEGATIVE); NITRITE URINE NEGATIVE (NEGATIVE); OCCULT BLOOD URINE NEGATIVE (NEGATIVE); PH URINE 5.5 (4.5-8.0); PROTEIN URINE TRACE (NEGATIVE); SPECIFIC GRAVITY URINE 1.036 (1.005-1.030)
[2024-12-17 08:50] LABS: BASOPHILS % 0.4 % (0.0-2.0); EOSINOPHILS % 1.1 % (0.0-5.0); HEMATOCRIT. 37.2 % (36.0-48.0); HEMOGLOBIN. 11.9 g/dL (12.0-16.0); LYMPHOCYTES % 18.3 % (20.0-50.0); MEAN CORPUSCULAR HEMOGLOBIN 26.2 pg (28.0-32.0); MEAN CORPUSCULAR HGB CONC 31.8 g/dL (31.0-37.0); MEAN CORPUSCULAR VOLUME 82.4 fL (81.0-99.0); MEAN PLATELET VOLUME 9.2 fl (7.4-10.4); MONOCYTES % 8.1 % (2.0-8.0); NEUTROPHILS % 72.1 % (40.0-76.0); PLATELET 302 x1000/uL (130-400); RED BLOOD CELL COUNT 4.52 mill/uL (4.2-5.4); RED CELL DISTRIBUTION WIDTH 15.1 % (11.6-14.6); WHITE BLOOD COUNT 11.1 x1000/uL (4.5-11.0)
[2024-12-17 08:51] LABS: CHLORIDE 104 mEq/L (98-107); POTASSIUM 3.5 mEq/L (3.5-5.1); SODIUM 138 mEq/L (136-145)
[2024-12-17 08:52] LABS: CALCIUM 9.2 mg/dL (8.7-10.4); CARBON DIOXIDE 28 mEq/L (21-32)
[2024-12-17 08:57] LABS: CREATININE 0.8 mg/dL (0.6-1.0); GLUCOSE 82 mg/dL (70-105); UREA NITROGEN BLOOD 16 mg/dL (9-23)
[2024-12-17 08:58] LABS: ETHANOL BLOOD < 10 mg/dL (<10)
[2024-12-17 08:59] LABS: MUCUS URINE 2+ /lpf (< = 2+); SQUAMOUS EPITHELIAL CELL URINE 2+ /lpf (RARE/1+)
[2024-12-17 09:07] LABS: BACTERIA URINE TRACE; RBC URINE 0-2 /hpf (0-2); WBC URINE 0-2 /hpf (0-2)
[2024-12-17 09:09] LABS: *AMPHETAMINES SCREEN URINE PRESUMPTIVE POSITIVE (NEGATIVE); *BARBITURATES SCREEN URINE NEGATIVE (NEGATIVE); *BENZODIAZEPINES SCREEN URINE NEGATIVE (NEGATIVE); *COCAINE SCREEN URINE NEGATIVE (NEGATIVE)
[2024-12-17 09:10] LABS: CANNABINOID URINE SCREEN PRESUMPTIVE POSITIVE (NEGATIVE); ECSTASY MDMA SCREEN URINE CONF.TEST INDICATED (NEGATIVE); METHADONE URINE SCREEN NEGATIVE (NEGATIVE); OPIATES URINE SCREEN NEGATIVE (NEGATIVE); PHENCYCLIDINE URINE SCREEN NEGATIVE (NEGATIVE)
[2024-12-17 09:16] LABS: HCG SCREEN NEGATIVE
[2024-12-17 19:18] VITALS: BP 134/68; PULSE 70; RESP 16; TEMP 36.9; O2SAT 97
[2024-12-17] MEDS ORDERED: OLANZAPINE 5MG TABLET ODT PO SCH (21:00)
== END 2024-12-17 19:37 ==
LOC: ER 08:01
DX: R46.1 Bizarre personal appearance (principal); Z20.822 Contact with and (suspected) exposure to COVID-19; Z79.899 Other long term (current) drug therapy
CPT/HCPCS: 36415; 80048; 80305; 80320; 81003; 81025; 84703; 85025; 87426; 99285; G0480